=== PATIENT | male | born 1935 | race Caucasian/White ===

== ENCOUNTER 2019-08-20 18:31 | Inpatient (IN) | payer OTHER, MEDICAID ==
[~2019-08-20] VITALS: Ht 157.5 cm; Wt 44.0 kg
[2019-08-20 18:35] VITALS: BP_SYST 123
[2019-08-20] MEDS ORDERED: IPRATROPIUM/ALBUTEROL SULFATE 3 ML AMPUL.NEB (DUONEB) INH ONE (19:00)
[2019-08-20 19:45] LABS: BASOPHILS % (AUTO) 0.2 % (0.0-2.0); EOSINOPHILS % (AUTO) 0.2 % (0.0-4.0); HEMATOCRIT 32.6 % (36-54); HEMOGLOBIN 10.2 g/dL (14.0-18.0); LYMPHOCYTES # (AUTO) 1.1 K/uL (1.0-5.5); LYMPHOCYTES % (AUTO) 11.6 % (20.5-51.5); MEAN CORPUSCULAR HEMOGLOBIN 25 pg (27-31); MEAN CORPUSCULAR HGB CONC 31 % (32-36); MEAN CORPUSCULAR VOLUME 79 fL (79.0-98.0); MONOCYTES # (AUTO) 0.6 K/uL (0.0-1.0); MONOCYTES % (AUTO) 6.7 % (1.7-9.3); NEUTROPHILS # (AUTO) 7.4 K/uL (1.8-7.7); NEUTROPHILS % (AUTO) 81.3 % (40.0-70.0); PLATELET COUNT (AUTO) 182 K/uL (130-430); RED BLOOD CELL COUNT(AUTO) 4.15 MIL/uL (4.2-6.2); WHITE BLOOD COUNT (AUTO) 9.1 K/uL (4.8-10.8)
[2019-08-20 19:55] LABS: ANION GAP 0 (5-15); CALCIUM 10.1 mg/dL (8.4-11.0); CHLORIDE 101 mmol/L (98-107); GLUCOSE 113 mg/dL (70-99); POTASSIUM 4.3 mmol/L (3.5-5.1); SODIUM SERUM 138 mmol/L (136-145); UREA NITROGEN, BLOOD 28 mg/dL (8-21)
[2019-08-20 20:01] LABS: ALANINE AMINOTRANSFERASE 35 U/L (12-78); ALBUMIN 2.1 g/dL (3.4-4.8); ASPARTATE AMINOTRANSFERASE 27 U/L (10-37); TOTAL BILIRUBIN 0.8 mg/dL (0.0-1.0)
[2019-08-20 20:06] LABS: PROTHROMBIN TIME 10.2 SECS (9.5-12.5)
[2019-08-20] MEDS ORDERED: cefTRIAXone 1 GM IVPB PREMIX 50 ML IV ONE (21:30)
[2019-08-20] MEDS ORDERED: IPRATROPIUM/ALBUTEROL SULFATE 3 ML AMPUL.NEB (DUONEB) INH PRN (21:45)
[2019-08-20] MEDS ORDERED: ACETAMINOPHEN 325 MG TABLET PO PRN (21:45)
[2019-08-20] MEDS ORDERED: NACL 0.9% 1,000 ML IV SCH (22:00)
[2019-08-20 22:08] VITALS: BP_SYST 156
[2019-08-20] MEDS: methylPREDNISolone SOD SUCC 40 MG/ML VIAL IVP SCH (22:17)
[2019-08-20] MEDS ORDERED: FLU VACC TS2019(65UP)/MF59C/PF 45 MCG/0.5 ML SYRINGE I.M. PRN (22:30)
[2019-08-21] VITALS: BP_SYST 140
[2019-08-21] MEDS: IPRATROPIUM/ALBUTEROL SULFATE 3 ML AMPUL.NEB (DUONEB) INH SCH ×3 (00:35→19:51)
[2019-08-21 00:41] VITALS: BP_SYST 156
[2019-08-21] MEDS: methylPREDNISolone SOD SUCC 40 MG/ML VIAL IVP SCH ×3 (05:19→21:20)
[2019-08-21 07:25] LABS: BASOPHILS % (AUTO) 0.1 % (0.0-2.0); HEMATOCRIT 30.7 % (36-54); HEMOGLOBIN 9.6 g/dL (14.0-18.0); LYMPHOCYTES # (AUTO) 0.5 K/uL (1.0-5.5); LYMPHOCYTES % (AUTO) 6.8 % (20.5-51.5); MEAN CORPUSCULAR HEMOGLOBIN 25 pg (27-31); MEAN CORPUSCULAR HGB CONC 31 % (32-36); MEAN CORPUSCULAR VOLUME 80 fL (79.0-98.0); MONOCYTES # (AUTO) 0.1 K/uL (0.0-1.0); MONOCYTES % (AUTO) 1.3 % (1.7-9.3); NEUTROPHILS # (AUTO) 7.1 K/uL (1.8-7.7); NEUTROPHILS % (AUTO) 91.8 % (40.0-70.0); PLATELET COUNT (AUTO) 162 K/uL (130-430); RED BLOOD CELL COUNT(AUTO) 3.86 MIL/uL (4.2-6.2); WHITE BLOOD COUNT (AUTO) 7.8 K/uL (4.8-10.8)
[2019-08-21 07:47] LABS: ALANINE AMINOTRANSFERASE 26 U/L (12-78); ALBUMIN 1.8 g/dL (3.4-4.8); ANION GAP 5 (5-15); ASPARTATE AMINOTRANSFERASE 19 U/L (10-37); CALCIUM 9.2 mg/dL (8.4-11.0); CHLORIDE 104 mmol/L (98-107); GLUCOSE 205 mg/dL (70-99); POTASSIUM 4.6 mmol/L (3.5-5.1); SODIUM SERUM 141 mmol/L (136-145); THYROID STIMULATING HORMONE 0.31 uIu/mL (0.36-3.74); TOTAL BILIRUBIN 0.5 mg/dL (0.0-1.0); UREA NITROGEN, BLOOD 28 mg/dL (8-21)
[2019-08-21 07:50] LABS: TOTAL IRON BIND. CAPACITY 197 ug/dL (250-450)
[2019-08-21 08:00] VITALS: BP_SYST 130
[2019-08-21] MEDS: FAMOTIDINE 20 MG TABLET PO SCH (09:02)
[2019-08-21] MEDS ORDERED: GLUCOSE 15 GM GEL (in 37.5 GM TUBE) PO PRN (10:15)
[2019-08-21] MEDS ORDERED: DEXTROSE 50%-WATER 50 ML DISP.SYRIN IVP PRN (10:15)
[2019-08-21] MEDS ORDERED: METOPROLOL TARTRATE 25 MG TABLET PO ONE (10:15)
[2019-08-21] MEDS ORDERED: D5W 1,000 ML IV PRN (10:15)
[2019-08-21 11:16] VITALS: BP_SYST 124
[2019-08-21] MEDS: cefTRIAXone 1 GM in D5W 50 ML IV SCH (13:38)
[2019-08-21] MEDS: 0.45% NACL 1,000 ML IV SCH (13:47)
[2019-08-21] MEDS: INSULIN LISPRO SLIDING SCALE 100 UNITS/ML VIAL (humaLOG) SUBCUT PRN ×3 (13:50→20:46)
[2019-08-21 15:17] VITALS: BP_SYST 120
[2019-08-21 20:00] VITALS: BP_SYST 123
[2019-08-21] MEDS: METOPROLOL TARTRATE 25 MG TABLET PO SCH (20:45)
[2019-08-22] VITALS: BP_SYST 139
[2019-08-22] MEDS: methylPREDNISolone SOD SUCC 40 MG/ML VIAL IVP SCH ×3 (05:47→21:34)
[2019-08-22] MEDS: INSULIN LISPRO SLIDING SCALE 100 UNITS/ML VIAL (humaLOG) SUBCUT PRN ×4 (05:54→21:36)
[2019-08-22] MEDS: IPRATROPIUM/ALBUTEROL SULFATE 3 ML AMPUL.NEB (DUONEB) INH SCH ×4 (07:21→19:48)
[2019-08-22 07:35] LABS: BASOPHILS % (AUTO) 0.2 % (0.0-2.0); HEMATOCRIT 29.1 % (36-54); HEMOGLOBIN 8.9 g/dL (14.0-18.0); LYMPHOCYTES # (AUTO) 0.4 K/uL (1.0-5.5); LYMPHOCYTES % (AUTO) 2.9 % (20.5-51.5); MEAN CORPUSCULAR HEMOGLOBIN 24 pg (27-31); MEAN CORPUSCULAR HGB CONC 31 % (32-36); MEAN CORPUSCULAR VOLUME 80 fL (79.0-98.0); MONOCYTES # (AUTO) 0.2 K/uL (0.0-1.0); MONOCYTES % (AUTO) 1.5 % (1.7-9.3); NEUTROPHILS # (AUTO) 12.9 K/uL (1.8-7.7); NEUTROPHILS % (AUTO) 95.4 % (40.0-70.0); PLATELET COUNT (AUTO) 226 K/uL (130-430); RED BLOOD CELL COUNT(AUTO) 3.65 MIL/uL (4.2-6.2); RED CELL DISTRIBUTION WIDTH 18.9 % (9.0-15.0)
[2019-08-22 07:48] LABS: WHITE BLOOD COUNT (AUTO) 13.5 K/uL (4.8-10.8)
[2019-08-22 07:49] LABS: CALCIUM 9.9 mg/dL (8.4-11.0); CREATININE 0.67 mg/dL (0.55-1.30); GLUCOSE 164 mg/dL (70-99); POTASSIUM 4.9 mmol/L (3.5-5.1); UREA NITROGEN, BLOOD 27 mg/dL (8-21)
[2019-08-22 07:57] LABS: ANION GAP 3 (5-15); CHLORIDE 103 mmol/L (98-107); SODIUM SERUM 140 mmol/L (136-145)
[2019-08-22 08:00] VITALS: BP_SYST 120
[2019-08-22 08:08] LABS: FOLATE (FOLIC ACID) >20.0 ng/mL (>3.0)
[2019-08-22] MEDS: METOPROLOL TARTRATE 25 MG TABLET PO SCH ×2 (08:59→21:31)
[2019-08-22] MEDS: FAMOTIDINE 20 MG TABLET PO SCH (08:59)
[2019-08-22] MEDS: 0.45% NACL 1,000 ML IV SCH (09:01)
[2019-08-22 12:00] VITALS: BP_SYST 116
[2019-08-22] MEDS: cefTRIAXone 1 GM in D5W 50 ML IV SCH (14:25)
[2019-08-22 16:24] VITALS: BP_SYST 114
[2019-08-22 21:28] VITALS: BP_SYST 139
[2019-08-23 00:31] VITALS: BP_SYST 130
[2019-08-23] MEDS: IPRATROPIUM/ALBUTEROL SULFATE 3 ML AMPUL.NEB (DUONEB) INH SCH ×3 (02:27→13:29)
[2019-08-23] MEDS: 0.45% NACL 1,000 ML IV SCH ×2 (04:00→05:34)
[2019-08-23] MEDS: methylPREDNISolone SOD SUCC 40 MG/ML VIAL IVP SCH ×2 (05:34→13:16)
[2019-08-23] MEDS: INSULIN LISPRO SLIDING SCALE 100 UNITS/ML VIAL (humaLOG) SUBCUT PRN ×3 (06:07→16:32)
[2019-08-23 07:22] VITALS: BP_SYST 130
[2019-08-23 07:30] LABS: CALCIUM 9.2 mg/dL (8.4-11.0); CREATININE 0.76 mg/dL (0.55-1.30); GLUCOSE 161 mg/dL (70-99); POTASSIUM 4.7 mmol/L (3.5-5.1); SODIUM SERUM 138 mmol/L (136-145); UREA NITROGEN, BLOOD 26 mg/dL (8-21)
[2019-08-23 07:37] LABS: HEMATOCRIT 28.3 % (36-54); HEMOGLOBIN 8.7 g/dL (14.0-18.0); NEUTROPHILS % (AUTO) 94.9 % (40.0-70.0); RED CELL DISTRIBUTION WIDTH 18.5 % (9.0-15.0); WHITE BLOOD COUNT (AUTO) 13.5 K/uL (4.8-10.8)
[2019-08-23 07:44] LABS: CHLORIDE 102 mmol/L (98-107)
[2019-08-23 07:45] LABS: ANION GAP < 3 (5-15)
[2019-08-23 07:55] LABS: BASOPHILS % (AUTO) 0.1 % (0.0-2.0); LYMPHOCYTES # (AUTO) 0.5 K/uL (1.0-5.5); LYMPHOCYTES % (AUTO) 3.5 % (20.5-51.5); MEAN CORPUSCULAR HEMOGLOBIN 25 pg (27-31); MEAN CORPUSCULAR HGB CONC 31 % (32-36); MEAN CORPUSCULAR VOLUME 80 fL (79.0-98.0); MONOCYTES # (AUTO) 0.2 K/uL (0.0-1.0); MONOCYTES % (AUTO) 1.5 % (1.7-9.3); NEUTROPHILS # (AUTO) 12.9 K/uL (1.8-7.7); PLATELET COUNT (AUTO) 283 K/uL (130-430); RED BLOOD CELL COUNT(AUTO) 3.55 MIL/uL (4.2-6.2)
[2019-08-23] MEDS: FAMOTIDINE 20 MG TABLET PO SCH (09:14)
[2019-08-23] MEDS: METOPROLOL TARTRATE 25 MG TABLET PO SCH (09:17)
[2019-08-23 11:17] VITALS: BP_SYST 111
[2019-08-23] MEDS: cefTRIAXone 1 GM in D5W 50 ML IV SCH (13:13)
[2019-08-23 15:13] VITALS: BP_SYST 148
[2019-08-23 15:29] VITALS: BP_SYST 148
[2019-08-23] MEDS ORDERED: MIRTAZAPINE 15 MG TABLET PO SCH (21:00)
[2019-08-24] MEDS ORDERED: PREDNISONE 20 MG TABLET PO SCH (09:00)
== END 2019-08-23 18:10 | DRG 189 ==
LOC: EDSEX 18:31 → SED 18:31 → STU 21:38
PROVIDERS: ADMIT Internal Medicine; ATTEND Internal Medicine
DX: J96.22 Acute and chronic respiratory failure with hypercapnia (principal); J44.1 Chronic obstructive pulmonary disease with (acute) exacerbation; E46 Unspecified protein-calorie malnutrition; D64.9 Anemia, unspecified; F03.90 Unspecified dementia, unspecified severity, without behavioral disturbance, psychotic disturbance, mood disturbance, and anxiety; F32.9 Major depressive disorder, single episode, unspecified; E86.0 Dehydration; Z87.891 Personal history of nicotine dependence
CPT/HCPCS: 36415; 36600; 71045; 80048; 80053; 82607; 82746; 82803-TC; 82962; 83540-TC; 83550-TC; 83605; 83735-TC; 83880; 84439; 84443-TC; 84484; 85025; 85610-TC; 85730-TC; 87040-TC; 93005; 94640; 94760; 96365; 97110-GP; 97530-GP; 99285; G0378; J0696; J1030; J7030; J7060; J7620